=== PATIENT | female | born 1945 | race Caucasian/White ===

== ENCOUNTER 2017-03-14 05:43 | Inpatient (IN) | payer OTHER ==
[~2017-03-14] VITALS: Ht 160 cm; Wt 98.6 kg
[2017-03-14] VITALS (7 sets, daily range): BP systolic 129–185; BP diastolic 51–86
[~2017-03-14 05:43] MED LIST: AMBIEN10 MG PO; CYANOCOBAL1000 MCG/2 IM; IRON PO; LEVOTHYROXINE88 MCG PO; LIPITOR20 MG PO; LIPITOR5 MG PO; LO-DOSE ASPIRIN81 M2 PO; NAPROXEN500 MG PO; OMEPRAZOLE40 M1 PO; PAROXETINE HCL20 MG PO; PERCOCET 5/31 TABLET PO; SYNTHROID; TOPROL XL50 MG PO; ZOFRAN4 MG PO
[2017-03-14] MEDS ORDERED: HYDROCODON-ACE1 EAC7 PO (11:36)
[2017-03-14 13:20] LABS: METH RESISTANT S AUREUS PCR NEGATIVE (NEGATIVE)
[2017-03-14 13:23] LABS: PROBE CHECK PASS; SPECIMEN PROCESSING CONTROL PASS
[2017-03-15 01:00] VITALS: BP 155/74
[2017-03-15 05:33] VITALS: BP 150/65
[2017-03-15 08:12] VITALS: BP 121/59
== END 2017-03-15 11:56 | disposition home or self-care (01) | DRG 39 ==
LOC: 2SOUTH 05:43 → 4WEST 11:16 → 2SOUTH 11:51 → 4WEST 14:51 → 2SOUTH 16:05 → 4EAST 21:54
PROVIDERS: Surgery
DX: I65.21 Occlusion and stenosis of right carotid artery (principal); E66.9 Obesity, unspecified; Z87.891 Personal history of nicotine dependence; Z68.38 Body mass index [BMI] 38.0-38.9, adult; K58.9 Irritable bowel syndrome, unspecified
CPT/HCPCS: 87641; 93005; 94799; C1768; J0690; J1100; J1170; J1644; J1650; J2250; J2405; J2710; J2720; J2795; J3010; J7120

== ENCOUNTER 2017-12-28 16:04 | Inpatient (IN) | payer OTHER ==
[~2017-12-28] VITALS: Ht 160 cm; Wt 102.0 kg
[~2017-12-28 16:04] MED LIST changes: -AMBIEN10 MG PO; +AMBIEN5 MG PO; +HYDROCODON-ACE1 EAC7 PO; -LEVOTHYROXINE88 MCG PO; +SYNTHROID50 MCG PO
[2017-12-28 17:17] LABS: BASOPHIL (%) 0.3 % (0-1); EOSINOPHIL (%) 0.4 % (0-5); EOSINOPHIL COUNT 0.1 K/uL (0-0.3); HEMOGLOBIN 11.5 G/DL (11.9-15.5); IMMATURE GRANULOCYTE (%) 0.5 % (0.0-0.7); LYMPHOCYTE (%) 8.6 % (15-42); LYMPHOCYTE COUNT 1.2 K/uL (1.0-2.8); MCH 24.9 PG (29.0-34.0); MCHC 31.1 G/DL (30.0-36.0); MCV 80.3 FL (83-99); MONOCYTE (%) 5.8 % (3-12); MONOCYTE COUNT 0.8 K/uL (0-0.8); NEUTROPHIL (%) 84.4 % (45-76); NEUTROPHIL COUNT 11.8 K/uL (1.8-6.4); PLATELET COUNT 265 K/uL (156-360); RBC DIS.WIDTH-CV 14.4 % (11.8-14.6); RBC DIS.WIDTH-SD 41.8 % (39-53); RED BLOOD COUNT 4.61 M/uL (3.80-5.20)
[2017-12-28 17:27] LABS: ALBUMIN 4.2 g/dL (3.2-4.8)
[2017-12-28 17:28] LABS: CHLORIDE 101 mEq/L (99-109); SODIUM 136 mEq/L (136-147)
[2017-12-28 17:30] LABS: GLUCOSE 140 mg/dL (70-99); TOTAL PROTEIN 7.9 g/dL (6.4-8.3)
[2017-12-28 17:32] LABS: TOTAL BILIRUBIN 0.5 mg/dL (0.0-1.0)
[2017-12-28 17:33] LABS: ALKALINE PHOSPHATASE 172 IU/L (3-129)
[2017-12-28 17:34] LABS: CREATININE 0.7 mg/dL (0.6-1.3); GFR ESTIMATE (CALCULATED) > 59 mL/min/
[2017-12-28 17:35] LABS: AST (GOT) 14 IU/L (2-34); DIRECT BILIRUBIN 0.2 mg/dL (0.0-0.3); UREA NITROGEN (BUN) 16 mg/dL (9-23)
[2017-12-28 17:37] LABS: ALT (GPT) 19 IU/L (3-49); LIPASE 24 U/L (1.0-51.0)
[2017-12-28 18:36] LABS: TROP-I INTERPRETATION NEGATIVE; TROPONIN-I < 0.01 ng/mL (0.0-0.30)
[2017-12-28] MEDS ORDERED: TRIAMCINOLONE A15 GM TP (19:44)
[2017-12-28] MEDS ORDERED: BENTYL10 MG PO (19:44)
[2017-12-28] MEDS ORDERED: SYNTHROID200 MCG PO (19:44)
[2017-12-28] MEDS ORDERED: CLONAZEPAM0.5 MG PO (19:45)
[2017-12-28] MEDS ORDERED: PROZAC40 MG PO (19:45)
[2017-12-28 23:41] VITALS: BP 161/73
[2017-12-29 03:31] LABS: APPEARANCE SL.HAZY ((CLEAR)); BILIRUBIN NEGATIVE; BLOOD NEGATIVE; COLOR YELLOW ((YELLOW)); GLUCOSE (STRIP) NEGATIVE; KETONES NEGATIVE; LEUKOCYTES TRACE; NITRITE NEGATIVE; PROTEIN (STRIP) 30; SPECIFIC GRAVITY 1.036 (1.000-1.030); UROBILINOGEN 0.2 MG/DL (0.2-1.0)
[2017-12-29 03:37] LABS: BACTERIA NONE SEEN /HPF; EPITHELIAL CELLS 1+ /HPF; MUCUS TRACE /LPF; UCUL ADDED? YES
[2017-12-29 03:46] VITALS: BP 151/72
[2017-12-29 06:42] LABS: BASOPHIL (%) 0.4 % (0-1); EOSINOPHIL COUNT 0.1 K/uL (0-0.3); HEMATOCRIT 31.8 % (36.0-46.0); HEMOGLOBIN 9.8 G/DL (11.9-15.5); IMMATURE GRANULOCYTE (%) 0.4 % (0.0-0.7); LYMPHOCYTE (%) 21.5 % (15-42); LYMPHOCYTE COUNT 1.7 K/uL (1.0-2.8); MCH 25.3 PG (29.0-34.0); MCHC 30.8 G/DL (30.0-36.0); MONOCYTE (%) 9.1 % (3-12); MONOCYTE COUNT 0.7 K/uL (0-0.8); NEUTROPHIL (%) 67.6 % (45-76); NEUTROPHIL COUNT 5.3 K/uL (1.8-6.4); PLATELET COUNT 241 K/uL (156-360); RBC DIS.WIDTH-CV 14.8 % (11.8-14.6); RBC DIS.WIDTH-SD 43.3 % (39-53); RED BLOOD COUNT 3.88 M/uL (3.80-5.20); WHITE BLOOD COUNT 7.8 K/uL (4.1-10.2)
[2017-12-29 07:09] LABS: CHLORIDE 105 MEQ/L (99-109); CREATININE 0.6 MG/DL (0.6-1.3); GFR ESTIMATE (CALCULATED) > 59 mL/min/; GLUCOSE 115 mg/dL (70-99); POTASSIUM 3.9 MEQ/L (3.7-5.4); SODIUM 140 MEQ/L (136-147); UREA NITROGEN (BUN) 13 mg/dL (9-23)
[2017-12-29 07:11] VITALS: BP 154/63
[2017-12-29 07:25] LABS: C-REACTIVE PROTEIN 37.7 MG/L (0-10)
[2017-12-29 14:59] VITALS: BP 164/71
[2017-12-29 23:19] VITALS: BP 156/108
[2017-12-30 03:40] VITALS: BP 174/83
[2017-12-30 05:53] LABS: BASOPHIL (%) 0.2 % (0-1); EOSINOPHIL (%) 0.2 % (0-5); HEMATOCRIT 31.2 % (36.0-46.0); HEMOGLOBIN 9.4 G/DL (11.9-15.5); IMMATURE GRANULOCYTE (%) 0.6 % (0.0-0.7); LYMPHOCYTE COUNT 0.7 K/uL (1.0-2.8); MCH 24.6 PG (29.0-34.0); MCHC 30.1 G/DL (30.0-36.0); MCV 81.7 FL (83-99); MONOCYTE (%) 6.4 % (3-12); MONOCYTE COUNT 0.4 K/uL (0-0.8); NEUTROPHIL (%) 81.6 % (45-76); NEUTROPHIL COUNT 5.4 K/uL (1.8-6.4); PLATELET COUNT 237 K/uL (156-360); RBC DIS.WIDTH-CV 14.7 % (11.8-14.6); RBC DIS.WIDTH-SD 43.5 % (39-53); RED BLOOD COUNT 3.82 M/uL (3.80-5.20); WHITE BLOOD COUNT 6.6 K/uL (4.1-10.2)
[2017-12-30 06:19] LABS: CHLORIDE 106 MEQ/L (99-109); CREATININE 0.6 MG/DL (0.6-1.3); GFR ESTIMATE (CALCULATED) > 59 mL/min/; GLUCOSE 141 mg/dL (70-99); POTASSIUM 3.9 MEQ/L (3.7-5.4); SODIUM 143 MEQ/L (136-147); UREA NITROGEN (BUN) 11 mg/dL (9-23)
[2017-12-30 07:06] VITALS: BP 137/68
[2017-12-30 11:03] VITALS: BP 141/72
[2017-12-30 23:53] VITALS: BP 122/57
[2017-12-31 06:46] LABS: BASOPHIL (%) 0.3 % (0-1); EOSINOPHIL (%) 0.7 % (0-5); EOSINOPHIL COUNT 0.1 K/uL (0-0.3); HEMATOCRIT 30.4 % (36.0-46.0); HEMOGLOBIN 9.1 G/DL (11.9-15.5); IMMATURE GRANULOCYTE (%) 0.4 % (0.0-0.7); LYMPHOCYTE (%) 21.8 % (15-42); LYMPHOCYTE COUNT 1.6 K/uL (1.0-2.8); MCH 24.5 PG (29.0-34.0); MCHC 29.9 G/DL (30.0-36.0); MCV 81.9 FL (83-99); MONOCYTE (%) 7.6 % (3-12); MONOCYTE COUNT 0.5 K/uL (0-0.8); NEUTROPHIL (%) 69.2 % (45-76); NEUTROPHIL COUNT 4.9 K/uL (1.8-6.4); PLATELET COUNT 216 K/uL (156-360); RBC DIS.WIDTH-CV 14.7 % (11.8-14.6); RBC DIS.WIDTH-SD 43.8 % (39-53); RED BLOOD COUNT 3.71 M/uL (3.80-5.20); WHITE BLOOD COUNT 7.1 K/uL (4.1-10.2)
[2017-12-31 07:19] LABS: CHLORIDE 103 MEQ/L (99-109); CREATININE 0.6 MG/DL (0.6-1.3); GFR ESTIMATE (CALCULATED) > 59 mL/min/; POTASSIUM 3.5 MEQ/L (3.7-5.4); SODIUM 145 MEQ/L (136-147); UREA NITROGEN (BUN) 13 mg/dL (9-23)
[2017-12-31 07:22] LABS: GLUCOSE 103 mg/dL (70-99)
[2017-12-31 08:07] VITALS: BP 145/67
[2017-12-31 16:11] VITALS: BP 162/72
[2017-12-31 23:18] VITALS: BP 151/66
[2018-01-01 07:01] LABS: BASOPHIL (%) 0.4 % (0-1); EOSINOPHIL (%) 1.6 % (0-5); EOSINOPHIL COUNT 0.1 K/uL (0-0.3); HEMATOCRIT 31.9 % (36.0-46.0); HEMOGLOBIN 9.6 G/DL (11.9-15.5); IMMATURE GRANULOCYTE (%) 0.4 % (0.0-0.7); LYMPHOCYTE (%) 28.6 % (15-42); MCH 24.7 PG (29.0-34.0); MCHC 30.1 G/DL (30.0-36.0); MONOCYTE (%) 8.8 % (3-12); MONOCYTE COUNT 0.6 K/uL (0-0.8); NEUTROPHIL (%) 60.2 % (45-76); NEUTROPHIL COUNT 4.2 K/uL (1.8-6.4); PLATELET COUNT 215 K/uL (156-360); RBC DIS.WIDTH-CV 14.7 % (11.8-14.6); RBC DIS.WIDTH-SD 44.1 % (39-53); RED BLOOD COUNT 3.89 M/uL (3.80-5.20)
[2018-01-01 07:27] LABS: ALBUMIN 3.2 G/DL (3.2-4.8); ALKALINE PHOSPHATASE 95 IU/L (3-129); ALT (GPT) 12 IU/L (3-49); AST (GOT) 12 IU/L (2-34); CHLORIDE 103 MEQ/L (99-109); CREATININE 0.7 MG/DL (0.6-1.3); DIRECT BILIRUBIN 0.1 mg/dL (0.0-0.3); GFR ESTIMATE (CALCULATED) > 59 mL/min/; GLUCOSE 100 mg/dL (70-99); POTASSIUM 3.4 MEQ/L (3.7-5.4); SODIUM 144 MEQ/L (136-147); TOTAL BILIRUBIN 0.4 MG/DL (0.0-1.0); TOTAL PROTEIN 5.6 G/DL (6.4-8.3); UREA NITROGEN (BUN) 13 mg/dL (9-23)
[2018-01-01 07:51] VITALS: BP 163/71
[2018-01-01] MEDS ORDERED: PREDNISONE20 MG PO (12:31)
[2018-01-01] MEDS ORDERED: AMLODIPINE BESY10 MG PO (13:02)
== END 2018-01-01 13:50 | disposition home or self-care (01) | DRG 389 ==
LOC: EME 16:04 → EDOF 20:25 → 5SOUTH 20:25 → ENRESERV 20:26 → CANRESERV 20:26 → ENRESERV 21:11 → 5SOUTH 22:55
PROVIDERS: Hospitalist; Physician Assistant
DX: K56.690 Other partial intestinal obstruction (principal); R65.10 Systemic inflammatory response syndrome (SIRS) of non-infectious origin without acute organ dysfunction; I10 Essential (primary) hypertension; K80.20 Calculus of gallbladder without cholecystitis without obstruction; K58.2 Mixed irritable bowel syndrome; E03.9 Hypothyroidism, unspecified; E78.00 Pure hypercholesterolemia, unspecified; E66.9 Obesity, unspecified; Z68.39 Body mass index [BMI] 39.0-39.9, adult; H93.19 Tinnitus, unspecified ear; K21.9 Gastro-esophageal reflux disease without esophagitis; D64.9 Anemia, unspecified; F32.9 Major depressive disorder, single episode, unspecified; F41.9 Anxiety disorder, unspecified; Z86.79 Personal history of other diseases of the circulatory system; Z85.828 Personal history of other malignant neoplasm of skin; Z79.82 Long term (current) use of aspirin; Z87.891 Personal history of nicotine dependence
CPT/HCPCS: 71046; 74018; 74019; 74177; 76705; 80048; 80061; 80076; 81003; 83605; 83690; 83735; 84484; 85025; 86140; 87086; 93005; 94799; 99281; 99285; C9113; J1170; J1650; J2060; J2405; J2765; J2930; J3010; J7030; J7512

== ENCOUNTER 2018-03-15 15:10 | Emergency (ER) | payer OTHER ==
[~2018-03-15] VITALS: Ht 160 cm; Wt 96.9 kg
[~2018-03-15 15:10] MED LIST changes: +AMLODIPINE BESY10 MG PO; +BENTYL10 MG PO; +CLONAZEPAM0.5 MG PO; +PREDNISONE20 MG PO; +PROZAC40 MG PO; +SYNTHROID200 MCG PO; +TRIAMCINOLONE A15 GM TP
[2018-03-15 17:18] LABS: HEMATOCRIT 38.8 % (36.0-46.0); HEMOGLOBIN 12.6 G/DL (11.9-15.5); MCH 27.2 PG (29.0-34.0); MCHC 32.5 G/DL (30.0-36.0); MCV 83.6 FL (83-99); PLATELET COUNT 240 K/uL (156-360); RBC DIS.WIDTH-CV 16.5 % (11.8-14.6); RED BLOOD COUNT 4.64 M/uL (3.80-5.20); WHITE BLOOD COUNT 6.9 K/uL (4.1-10.2)
[2018-03-15 17:30] LABS: CHLORIDE 104 mEq/L (99-109); POTASSIUM 4.1 mEq/L (3.7-5.4); SODIUM 140 mEq/L (136-147)
[2018-03-15 17:32] LABS: GLUCOSE 131 mg/dL (70-99)
[2018-03-15 17:36] LABS: CREATININE 0.7 mg/dL (0.6-1.3); GFR ESTIMATE (CALCULATED) > 59 mL/min/
[2018-03-15 17:37] LABS: UREA NITROGEN (BUN) 14 mg/dL (9-23)
[2018-03-15 17:40] LABS: TROP-I INTERPRETATION NEGATIVE; TROPONIN-I < 0.01 ng/mL (0.0-0.30)
[2018-03-15 18:29] VITALS: BP 171/76
== END 2018-03-15 18:34 | disposition home or self-care (01) ==
LOC: EME 15:10
PROVIDERS: Nurse Practitioner Family
DX: S00.83XA Contusion of other part of head, initial encounter (principal); D64.9 Anemia, unspecified; W06.XXXA Fall from bed, initial encounter; I10 Essential (primary) hypertension; K21.9 Gastro-esophageal reflux disease without esophagitis; E78.5 Hyperlipidemia, unspecified; E03.9 Hypothyroidism, unspecified; F32.9 Major depressive disorder, single episode, unspecified; Z79.82 Long term (current) use of aspirin
CPT/HCPCS: 70450; 70486; 71046; 72125; 80048; 84484; 85027; 93005; 99281; 99285